=== PATIENT | male | born 1975 | race Caucasian/White ===

== ENCOUNTER 2017-05-02 09:40 | Day surgery (SDC) | payer BC ==
[~2017-05-02 09:40] MED LIST: Sodium Chloride 0.9% 10 ML Syringe FLUSH PRN
[2017-05-02] MEDS: Sodium Chloride 0.9% 1,000 ML IV SCH ×2 (10:15→13:25)
[2017-05-02] MEDS ORDERED: Propofol 1,000 MG/100 ML SDV ONE (11:25)
[2017-05-02 12:41] VITALS: BP 134/94
--- NOTE | 2017-05-02 17:20 | OR ---
DATE OF OPERATION: 05/02/2017 PREOPERATIVE DIAGNOSIS: Dysphagia. POSTOPERATIVE DIAGNOSES: 1. Medium 3 cm sliding-type hiatal hernia. 2. Schatzki's ring. 3. Gastroesophageal reflux disease. 4. Gastritis and duodenitis. OPERATION: Esophagogastroduodenoscopy. COMPLICATIONS: None. DRAINS: None. SPECIMENS: None. ESTIMATED BLOOD LOSS: 0. ANESTHESIA: General, propofol anesthesia. INDICATION: Mr. Smyth is a 41-year-old gentleman with a history of dysphagia and having a piece of meat and bread getting stuck in his lower esophagus. He is here for upper endoscopy. The above-mentioned procedure was explained. The risks, benefits, complications were explained. Patient understood and agreed and was brought to the operating room. DESCRIPTION OF PROCEDURE: The patient was brought to the operating room, placed in the left lateral decubitus position on the operating room table. Satisfactory general propofol anesthesia was administered. Cetacaine spray was administered in the back of the throat and a mouthguard was placed. A time-out was called. We began by placing an endoscope by visual inspection into the oral cavity and subsequently advancing this down under direct vision to the 2nd portion of the duodenal. Evaluation was carried out on withdrawal. The 2nd portion of the duodenum appeared normal. The 1st portion of the duodenum including the bulb had some granular erythema suggestive of duodenitis. However, there were no ulcerations or abnormal lesions. Next, careful evaluation of the stomach revealed normal morphology, however, there was some granularity of the antrum suggesting a mild gastritis. I then performed a retroflexion maneuver which revealed a hiatal hernia and the remainder of the stomach was normal. Evaluation of the hiatal hernia revealed approximately 3 cm hiatal hernia which appeared a sliding-type. There was a Schatzki's ring at approximately the Z- line. This was nonobstructing and easily passed but identifiable. The remainder of the esophagus was normal. There were no erosions or signs of Perez's disease. The stomach was suctioned out and the endoscope was withdrawn. The patient tolerated the procedure well. There were no complications. Instrument count was correct. The patient was awoken in the OR and taken to the PACU for recovery. DELFIN/JENS /[id number]
== END 2017-05-02 12:10 | disposition home or self-care (01) ==
LOC: LB.SDS 09:40
PROVIDERS: ATTEND Surgery
DX: K22.2 Esophageal obstruction (principal); K29.50 Unspecified chronic gastritis without bleeding; K29.80 Duodenitis without bleeding; K44.9 Diaphragmatic hernia without obstruction or gangrene; K21.9 Gastro-esophageal reflux disease without esophagitis; Z98.890 Other specified postprocedural states
CPT/HCPCS: 43235; J7040; J3490